=== PATIENT | female | born 1990 | race Asian ===

== ENCOUNTER 2016-09-16 13:56 | Emergency (ER) | payer BC ==
[2016-09-16 14:04] VITALS: BP 116/80; PULSE 94; RESP 16; TEMP 97.5; O2SAT 97
--- NOTE | 2016-09-16 14:16 | EDPHY ---
H & P Stated Complaint: L labia swollen Time Seen by Provider: 09/16/16 14:11 HPI/ROS: CHIEF COMPLAINT: Swollen and painful left labia. HISTORY OF PRESENT ILLNESS: The patient is a 25-year-old female who presents with 2 days of swollen and painful left labia. The pain is severe and has been keeping her awake. She denies vaginal bleeding or discharge, abdominal pain, back pain, fever, chills. LNMP 7 days ago. No fever, chills, chest pain, shortness of breath, palpitations, vomiting, diarrhea, urinary complaints, headache, lightheadedness. She has taken Ibuprofen for pain. REVIEW OF SYSTEMS: Aside from elements discussed in the HPI, a comprehensive 10-point review of systems was reviewed and is negative. PAST MEDICAL HISTORY: Denies. SOCIAL HISTORY: Occasional smoker. VITAL SIGNS: Reviewed by me GENERAL: Well-developed, well-nourished, resting comfortably in no respiratory distress. HEENT: Benign. ABDOMEN: Soft, nontender, nondistended, bowel sounds normal. : Left labia my nor is swollen, 3 cm x 2 cm, erythematous, exquisitely tender to the touch. Abscess on left labia. Left labia minora superior to the abscess is also swollen and angioandematous. NEURO: Alert and oriented, grossly nonfocal. SKIN: Warm and dry, no rash. PSYCHIATRIC: Normal mentation, no agitation. Portions of this note were transcribed by a biomedical equipment technician. I personally performed a history, physical exam, medical decision making, and confirmed accuracy of information the transcribed note. Source: Patient Exam Limitations: No limitations - Personal History LMP (Females 10-55): 1-7 Days Ago Current Tetanus Diphtheria and Acellular Pertussis (TDAP): Yes - Medical/Surgical History Hx Asthma: No Hx Chronic Respiratory Disease: No Hx Diabetes: No Hx Cardiac Disease: No Hx Renal Disease: No Hx Cirrhosis: No Hx Alcoholism: No Hx HIV/AIDS: No - Social History Smoking Status: Current some day smoker Constitutional: Initial Vital Signs Temperature (C) 36.4 C 09/16/16 14:00 Heart Rate 94 09/16/16 14:00 Respiratory Rate 16 09/16/16 14:00 Blood Pressure 116/80 09/16/16 14:00 O2 Sat (%) 97 09/16/16 14:00 O2 Delivery Mode Room Air Allergies/Adverse Reactions: No Known Drug Allergies Allergy (Verified 09/16/16 14:04) Home Medications: Medication Instructions Recorded Hydrocodone/APAP 5/325 [[place] 1 tab PO Q6H PRN #10 tab 09/16/16 5/325 (RX)] Medical Decision Making ED Course/Re-evaluation: 25-year-old female presents with labia swelling and pain. On exam she is quite tender. She has an abscess-like structure on her left labia and her left labia minora is angioedematous. She has no associated symptoms. I have paged gynecology. 1424: Consulted with Dr. Birmingham, [employer] OFFICER. She will see the patient in her office for follow up. She recommends SITS baths, NSAIDS, and warm compressed. I discussed this plan with the patient at this time. She understands and agrees with it. Differential Diagnosis: Differential diagnoses for the patient's symptom complex was considered including but not limited to portions gland cyst, labial abscess, sexually transmitted disease, vaginal prolapse, cellulitis. - Data Points Medications Given: Discontinued Medications Ketorolac Tromethamine (Toradol) 30 mg IM EDNOW ONE Stop: 09/16/16 14:29 Last Admin: 09/16/16 14:35 Dose: 30 mg Departure - Departure Disposition: Home, Routine, Self-Care Clinical Impression: Bartholin cyst Condition: Good Instructions: Bartholin Cyst (ED) Additional Instructions: Call Dr. Birmingham, [employer] OFFICER, or your own [employer] OFFICER tomorrow to set up a follow up appointment. In the meantime, use warm compresses on the affected area. I recommend Ibuprofen (Motrin,Advil) or Naproxen Sodium (Aleve) for pain and anti-inflammatory effects. You may take either one, but do not take both. Your dose is: Ibuprofen 600mg every 6-8 hours with food. OR Naproxen Sodium (Aleve) 220mg every 12 hours. Try using SITS baths for the pain and irritation. Return for any serious worsening of condition. Referrals: Eugenio Canseco MD [Primary Care Provider] - As per Instructions Naomi Birmingham DO [Doctor of Osteopathy] - As per Instructions Prescriptions: Hydrocodone/APAP 5/325 [[place] 5/325 (RX)] 1 tab PO Q6H PRN #10 tab PRN Reason: Pain Report Scribed for: Lala Serrano Report Scribed by: William Little Date of Report: 09/16/16 Time of Report: 14:15
[2016-09-16] MEDS ORDERED: KETOROLAC 30 MG/1 ML SDV IM ONE (14:28)
== END 2016-09-16 14:43 | disposition home or self-care (01) ==
DX: N75.0 Cyst of Bartholin's gland (principal); F17.200 Nicotine dependence, unspecified, uncomplicated
CPT/HCPCS: J1885

== ENCOUNTER → 2017-07-19 | Outpatient (CLI) | payer BC | LOC: BMCIMAGING 14:41 | PROVIDERS: ATTEND Podiatrist Foot & Ankle Surgery | DX: M79.671 Pain in right foot (principal) ==